=== PATIENT | male | born 1965 | race Caucasian/White ===

== ENCOUNTER 2023-06-24 17:30 | Emergency (ER) | payer OTHER, SELFPAY ==
[2023-06-24 17:58] VITALS: BP 134/81; PULSE 77; RESP 17; TEMP 36.8; O2SAT 100; BMI 29.9
--- NOTE | 2023-06-24 18:03 | DI.RAD.S_ITS ---
PROCEDURE: XR KNEE RT 3V INDICATIONS: twisted knee, pain TECHNIQUE: 3 views of the knee were acquired. COMPARISON: None. FINDINGS: Bones: No fractures or dislocations. No suspicious bony lesions. Minimal marginal osteophytes at the lateral femorotibial compartment and patellofemoral compartment. Soft tissues: No joint effusion. No suspicious soft tissue calcifications. IMPRESSION: No acute bony abnormality or significant effusion. Approved by: Nellie Saeed M.D.,Ph.D. on 06/24/2023 at 19:26
[2023-06-24] MEDS: ACETAMINOPHEN 325 MG TABLET 975 MG PO (19:47)
[2023-06-24] MEDS: IBUPROFEN 400 MG TABLET PO (19:49)
--- NOTE | 2023-06-24 20:03 | ED.LOWEXIN ---
HPI - Extremity Injury (Lower) General Chief Complaint: Extremity Injury, Lower Stated Complaint: sent by his work for a knee injury Time Seen by Provider: 06/24/23 19:45 Source: patient Mode of arrival: Ambulatory History of Present Illness HPI Narrative: Patient is a 58-year-old male. He has a wood handler on a wheel taker. 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 Has had pain on the inside of the right knee since then. No other injuries from the event. He has been ambulatory but it does cause some discomfort. Because of the rounded see the could not be evaluated until today. Related Data Allergies Allergy/AdvReac Type Severity Reaction Status Date / Time No Known Drug Allergies Allergy Verified 06/24/23 17:58 Review of Systems Constitutional Constitutional: Reports system reviewed and no additional complaints, except as documented Musculoskeletal Musculoskeletal: Reports system reviewed and no additional complaints, except as documented Patient History Social History Smoking Status: Never smoker Smoking Status: Never smoker alcohol intake frequency: holidays/special occasions only Substance Use Type: does not use Exam Initial Vital Signs Initial Vital Signs: Vital Signs Temperature 98.3 F 06/24/23 17:58 Pulse Rate 77 06/24/23 17:58 Respiratory Rate 17 06/24/23 17:58 Blood Pressure 134/81 06/24/23 17:58 Pulse Oximetry 100 06/24/23 17:58 Oxygen Delivery Method Room Air 06/24/23 17:58 Skin General: no rashes or lesions noted Neuro Sensory Exam: no sensory deficits noted Extrem Other: Patellar tendon intact. Quadriceps tendon intact. Does have tenderness along the medial joint line. Hamstrings are intact. Patient is ambulatory. Course Orders Ordered: ED Orders 06/24/23 18:03 XR knee RT 3V Stat Discontinued Medications Acetaminophen (Acetaminophen 325 Mg Tablet) 975 mg PO NOW ONE Stop: 06/24/23 19:35 Last Admin: 06/24/23 19:47 Dose: 975 mg Documented By: BRAYAN Ibuprofen (Ibuprofen 400 Mg Tablet) 400 mg PO NOW ONE Stop: 06/24/23 19:35 Last Admin: 06/24/23 19:49 Dose: 400 mg Documented By: BRAYAN Vital Signs Vital signs: Vital Signs - 8 hr 06/24/23 17:58 06/24/23 20:17 Temperature 98.3 F 97.7 F Pulse Rate 77 74 Respiratory Rate 17 16 Blood Pressure 134/81 136/72 Pulse Oximetry 100 98 Oxygen Delivery Method Room Air Room Air MDM - Extremity Injury (Lower) Imaging Data Extremity x-ray #1: Radiologist's Impression: PROCEDURE: XR KNEE RT 3V INDICATIONS: twisted knee, pain TECHNIQUE: 3 views of the knee were acquired. COMPARISON: None. FINDINGS: Bones: No fractures or dislocations. No suspicious bony lesions. Minimal marginal osteophytes at the lateral femorotibial compartment and patellofemoral compartment. Soft tissues: No joint effusion. No suspicious soft tissue calcifications. IMPRESSION: No acute bony abnormality or significant effusion. [facility] Narrative Medical decision making narrative: No fractures or dislocations noted on the x-rays. Given the location of the injury in the type of injury he potentially would have a soft tissue injury such as a meniscus tear. Would potentially require an MRI for this but this does not need to be emergent. He stated that his company is going to fly him home tomorrow and that he could follow-up with his primary doctor. Patient can ambulate as tolerated. Discussed use of Tylenol and ibuprofen. Patient is cleared to fly. 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 He would have to talk with his primary doctor for this. Patient is safe for discharge. Discharge Plan Departure Patient Disposition: Home Clinical Impression: Injury of knee, left Instructions: DI for Knee Sprain, How To Perform RICE (Rest, Ice, Compress, Elevate) Activity Restrictions/Additional Instructions: The x-rays showed no signs of fractures. You can walk on your knee as tolerated. You can use the elastic bandage over the knee brace. You can fly back home tomorrow. I recommend that you talk with your primary doctor about further evaluation to include either physical therapy or a MRI. You can take Tylenol or ibuprofen for discomfort. You can also use ice. Stand Alone Forms: Patient Portal/API, Work Release Note
[2023-06-24 20:17] VITALS: BP 136/72; PULSE 74; RESP 16; TEMP 36.5; O2SAT 98
== END 2023-06-24 20:18 | disposition home or self-care (01) ==
PROVIDERS: Emergency Provider Emergency Medicine
DX: S89.91XA Unspecified injury of right lower leg, initial encounter (principal); X50.1XXA Overexertion from prolonged static or awkward postures, initial encounter; Y92.814 Boat as the place of occurrence of the external cause
CPT/HCPCS: 73562; 99283